=== PATIENT | female | born 1945 | race Caucasian/White ===

== ENCOUNTER 2019-06-28 09:32 | Outpatient (CLI) | payer MEDICARE, OTHER, SELFPAY ==
--- NOTE | ~2019-06-28 | DEXA_ITS ---
Bone Density Report Name: Annika Griffith Age: 74 Sex: Female Ethnicity: White Date of : 1945 Indication: postmenopausal; height loss; prior fracture; cancer; Referring Provider: Rashi Mata Study: Bone densitometry was performed. Exam Date: June 28, 2019 Accession number: [id number] Bone Density: Region BMD T-score Z-score Classification AP Spine (L1, L2, L3) 0.926 -0.8 1.3 Normal Femoral Neck (Left) 0.961 1.0 2.9 Normal Total Hip (Left) 1.113 1.4 3.0 Normal Total Hip Bilateral Avg 1.090 1.2 2.8 Normal Femoral Neck (Right) 0.888 0.4 2.3 Normal Total Hip (Right) 1.066 1.0 2.6 Normal World Health Organization criteria for BMD impression classify patients as: Normal (T-score at or above -1.0), Osteopenia (T-score between -1.0 and -2.5), or Osteoporosis (T-score at or below -2.5). 10-year Fracture Risk: FRAX not reported because: All T-scores for Spine Total, Hip Total, Femoral Neck at or above -1.0 Treated for osteoporosis Clinical Information Provided by Patient: Has had a low trauma fracture Is being treated for osteoporosis Has used the following medications: Fosamax (i.e. alendronate), Vitamin D, Calcium Has the following medical conditions: Cancer Patient maximum height was 62 Menopause Age: 52 No regular weight bearing exercise Onset of menses at age 16 Number of children 3 Impression: The patient has normal bone mass. The patient has risk factors, including: previous fracture. Discussion: It is important to ask patients whether they are taking their medications and to encourage continued and appropriate compliance with their osteoporosis therapies to reduce fracture risk. It is also important to review their risk factors and encourage appropriate calcium and vitamin D intakes, exercise, fall prevention and other lifestyle measures. Follow-Up: Consider a repeat BMD and Vertebral Fracture Assessment (VFA) exam in 2 years or sooner if medically necessary, to reassess this patient's status. Reported by: [facility] on 06/28/2019 10:03:00 AM. Reviewed, dictated and finalized at location [facility]
== END 2019-06-28 09:33 | disposition home or self-care (01) ==
LOC: ANHIMG 09:35
PROVIDERS: PCP Family Medicine; Visit Provider Internal Medicine Hematology & Oncology
DX: M81.0 Age-related osteoporosis without current pathological fracture (principal)
CPT/HCPCS: 77080

== ENCOUNTER 2019-09-28 11:59 | Outpatient (CLI) | payer MEDICARE, OTHER, SELFPAY ==
[2019-09-28 12:13] LABS: Basophils Percent Auto 0.4 % (0.2-1.2); Eosinophils Absolute Auto 0.3 K/mm3 (0-0.3); Hematocrit 36.2 % (37.0-47.0); Immature Granulocyte Absolute 0.02 K/mm3 (0.00-0.031); Immature Granulocyte Percent A 0.4 % (0-0.5); Lymphocytes Absolute Auto 1.43 K/mm3 (0.9-3.2); Mean Corpuscular HGB Conc 33.1 g/dl (32-36); Mean Corpuscular Hemoglobin 31.9 pg (26-34); Mean Corpuscular Volume 96.3 fl (80-100); Mean Platelet Volume 8.6 fl (7.4-10.4); Monocytes Absolute Auto 0.6 K/mm3 (0.1-0.6); Monocytes Percent Auto 10.4 % (2.6-8.5); Neutrophils Absolute Auto 3.1 K/mm3 (1.3-6.7); Neutrophils Percent Auto 56.8 % (45.5-73.1); Platelet Count Result 159 k/mm3 (150-375); Red Blood Count 3.76 M/mm3 (4.2-5.4); Red Cell Distribution Width 13.3 % (11.5-14.5); White Blood Count 5.5 K/mm3 (4.5-10.0)
[2019-09-28 12:16] LABS: Blood Urea Nitrogen 28 mg/dL (8-26); Carbon Dioxide 27 mmol/L (22-30); Chloride 104 mmol/L (98-109); Estimated Glomerular Filt Rate > 60; Glucose 132 mg/dL (70-105); Potassium 4.3 mmol/L (3.5-4.9); Sodium 141 mmol/L (138-146)
[2019-09-28 16:39] LABS: Alanine Aminotransferase 20 U/L (4-35); Albumin Level 4.4 g/dL (3.5-5.1); Alkaline Phosphatase 68 U/L (38-126); Aspartate Amino Transferase 27 U/L (14-36); Bilirubin,Total 0.3 mg/dL (0.2-1.3); Blood Urea Nitrogen 30 mg/dL (7-17); Calcium 9.5 mg/dL (8.4-10.2); Carbon Dioxide 28 mmol/L (22-30); Chloride 104 mmol/L (98-107); Estimated Glomerular Filt Rate > 60; Glucose 135 mg/dL (65-105); Potassium 4.5 mmol/L (3.4-5.0); Sodium 139 mmol/L (137-145)
== END 2019-09-28 12:00 | disposition home or self-care (01) ==
PROVIDERS: PCP Family Medicine; Visit Provider Internal Medicine Hematology & Oncology
DX: D05.11 Intraductal carcinoma in situ of right breast (principal)
CPT/HCPCS: 36415; 80048; 80053; 85025

== ENCOUNTER 2019-12-28 10:35 | Outpatient (CLI) | payer MEDICARE, OTHER, SELFPAY ==
[2019-12-28 10:48] LABS: Basophils Percent Auto 0.6 % (0.2-1.2); Eosinophils Absolute Auto 0.3 K/mm3 (0-0.3); Eosinophils Percent Auto 5.4 % (0-4.4); Hematocrit 37.4 % (37.0-47.0); Hemoglobin 12.4 g/dL (12.0-15.0); Immature Granulocyte Absolute 0.01 K/mm3 (0.00-0.031); Immature Granulocyte Percent A 0.2 % (0-0.5); Lymphocytes Absolute Auto 1.45 K/mm3 (0.9-3.2); Mean Corpuscular HGB Conc 33.2 g/dl (32-36); Mean Corpuscular Hemoglobin 32.1 pg (26-34); Mean Corpuscular Volume 96.9 fl (80-100); Mean Platelet Volume 8.3 fl (7.4-10.4); Monocytes Absolute Auto 0.5 K/mm3 (0.1-0.6); Monocytes Percent Auto 8.9 % (2.6-8.5); Neutrophils Absolute Auto 2.9 K/mm3 (1.3-6.7); Neutrophils Percent Auto 56.9 % (45.5-73.1); Platelet Count Result 150 k/mm3 (150-375); Red Blood Count 3.86 M/mm3 (4.2-5.4); White Blood Count 5.2 K/mm3 (4.5-10.0)
[2019-12-28 10:53] LABS: Blood Urea Nitrogen 28 mg/dL (8-26); Carbon Dioxide 29 mmol/L (22-30); Chloride 99 mmol/L (98-109); Estimated Glomerular Filt Rate > 60; Glucose 110 mg/dL (70-105); Potassium 4.8 mmol/L (3.5-4.9); Sodium 139 mmol/L (138-146)
[2019-12-28 12:11] LABS: Alanine Aminotransferase 31 U/L (4-35); Albumin Level 4.5 g/dL (3.5-5.1); Alkaline Phosphatase 76 U/L (38-126); Anion Gap 9 mmol/L (8-16); Aspartate Amino Transferase 33 U/L (14-36); Bilirubin,Total 0.4 mg/dL (0.2-1.3); Blood Urea Nitrogen 29 mg/dL (7-17); Calcium 9.8 mg/dL (8.4-10.2); Carbon Dioxide 32 mmol/L (22-30); Chloride 98 mmol/L (98-107); Estimated Glomerular Filt Rate > 60; Glucose 111 mg/dL (65-105); Potassium 4.8 mmol/L (3.4-5.0); Sodium 139 mmol/L (137-145)
== END 2019-12-28 10:36 | disposition home or self-care (01) ==
LOC: ANHLAB 10:37
PROVIDERS: PCP Family Medicine; Visit Provider Internal Medicine Hematology & Oncology
DX: D05.11 Intraductal carcinoma in situ of right breast (principal)
CPT/HCPCS: 36415; 80048; 80053; 85025

== ENCOUNTER 2020-08-08 10:13 | Outpatient (CLI) | payer MEDICARE, OTHER, SELFPAY ==
[2020-08-08 10:39] LABS: Basophils Percent Auto 0.2 % (0.2-1.2); Eosinophils Absolute Auto 0.2 K/mm3 (0-0.3); Eosinophils Percent Auto 3.9 % (0-4.4); Hematocrit 37.3 % (37.0-47.0); Hemoglobin 12.5 g/dL (12.0-15.0); Immature Granulocyte Absolute 0.01 K/mm3 (0.00-0.031); Immature Granulocyte Percent A 0.2 % (0-0.5); Lymphocytes Absolute Auto 1.37 K/mm3 (0.9-3.2); Lymphocytes Percent Auto 26.8 % (18.3-44.2); Mean Corpuscular HGB Conc 33.5 g/dl (32-36); Mean Corpuscular Hemoglobin 31.9 pg (26-34); Mean Corpuscular Volume 95.2 fl (80-100); Mean Platelet Volume 8.5 fl (7.4-10.4); Monocytes Absolute Auto 0.6 K/mm3 (0.1-0.6); Monocytes Percent Auto 11.9 % (2.6-8.5); Neutrophils Absolute Auto 2.9 K/mm3 (1.3-6.7); Platelet Count Result 151 k/mm3 (150-375); Red Blood Count 3.92 M/mm3 (4.2-5.4); Red Cell Distribution Width 13.2 % (11.5-14.5); White Blood Count 5.1 K/mm3 (4.5-10.0)
[2020-08-08 10:43] LABS: Blood Urea Nitrogen 38 mg/dL (8-26); Carbon Dioxide 31 mmol/L (22-30); Chloride 100 mmol/L (98-109); Estimated Glomerular Filt Rate > 60; Glucose 97 mg/dL (70-105); Potassium 4.5 mmol/L (3.5-4.9); Sodium 138 mmol/L (138-146)
[2020-08-08 13:13] LABS: Alanine Aminotransferase 28 U/L (4-35); Albumin Level 4.6 g/dL (3.5-5.1); Alkaline Phosphatase 66 U/L (38-126); Anion Gap 6 mmol/L (8-16); Aspartate Amino Transferase 32 U/L (14-36); Bilirubin,Total 0.2 mg/dL (0.2-1.3); Blood Urea Nitrogen 41 mg/dL (7-17); Carbon Dioxide 31 mmol/L (22-30); Chloride 100 mmol/L (98-107); Estimated Glomerular Filt Rate > 60; Glucose 95 mg/dL (65-105); Potassium 4.6 mmol/L (3.4-5.0); Sodium 137 mmol/L (137-145)
[2020-08-12 08:57] LABS: CA 15-3 5 U/mL (<32)
== END 2020-08-08 10:14 | disposition home or self-care (01) ==
LOC: ANHLAB 10:15
PROVIDERS: PCP Family Medicine; Visit Provider Internal Medicine Hematology & Oncology
DX: C50.911 Malignant neoplasm of unspecified site of right female breast (principal)
CPT/HCPCS: 36415; 80048; 80053; 85025; 86300

== ENCOUNTER 2020-11-28 10:13 | Outpatient (CLI) | payer MEDICARE, OTHER, SELFPAY ==
[2020-11-28 10:31] LABS: Basophils Percent Auto 0.2 % (0.2-1.2); Eosinophils Absolute Auto 0.2 K/mm3 (0-0.3); Eosinophils Percent Auto 4.5 % (0-4.4); Hematocrit 36.6 % (37.0-47.0); Hemoglobin 12.5 g/dL (12.0-15.0); Immature Granulocyte Absolute 0.01 K/mm3 (0.00-0.031); Immature Granulocyte Percent A 0.2 % (0-0.5); Lymphocytes Absolute Auto 1.38 K/mm3 (0.9-3.2); Lymphocytes Percent Auto 26.1 % (18.3-44.2); Mean Corpuscular HGB Conc 34.2 g/dl (32-36); Mean Corpuscular Hemoglobin 31.6 pg (26-34); Mean Corpuscular Volume 92.7 fl (80-100); Mean Platelet Volume 8.6 fl (7.4-10.4); Monocytes Absolute Auto 0.6 K/mm3 (0.1-0.6); Monocytes Percent Auto 11.9 % (2.6-8.5); Neutrophils Percent Auto 57.1 % (45.5-73.1); Platelet Count Result 182 k/mm3 (150-375); Red Blood Count 3.95 M/mm3 (4.2-5.4); Red Cell Distribution Width 12.8 % (11.5-14.5); White Blood Count 5.3 K/mm3 (4.5-10.0)
[2020-11-28 10:35] LABS: Blood Urea Nitrogen 40 mg/dL (8-26); Carbon Dioxide 27 mmol/L (22-30); Chloride 101 mmol/L (98-109); Estimated Glomerular Filt Rate > 60; Glucose 100 mg/dL (70-105); Potassium 4.5 mmol/L (3.5-4.9); Sodium 140 mmol/L (138-146)
[2020-11-28 18:39] LABS: Alanine Aminotransferase 26 U/L (4-35); Albumin Level 4.4 g/dL (3.5-5.1); Alkaline Phosphatase 73 U/L (38-126); Anion Gap 9 mmol/L (8-16); Aspartate Amino Transferase 27 U/L (14-36); Bilirubin,Total 0.2 mg/dL (0.2-1.3); Blood Urea Nitrogen 43 mg/dL (7-17); Calcium 10.1 mg/dL (8.4-10.2); Carbon Dioxide 27 mmol/L (22-30); Chloride 102 mmol/L (98-107); Estimated Glomerular Filt Rate > 60; Glucose 101 mg/dL (65-110); Potassium 4.6 mmol/L (3.4-5.0); Sodium 138 mmol/L (137-145)
[2020-12-01 06:49] LABS: CA 15-3 7 U/mL (<32)
== END 2020-11-28 10:14 | disposition home or self-care (01) ==
LOC: ANHLAB 10:17
PROVIDERS: PCP Family Medicine; Visit Provider Internal Medicine Hematology & Oncology
DX: C50.911 Malignant neoplasm of unspecified site of right female breast (principal)
CPT/HCPCS: 36415; 80048; 80053; 85025; 86300

== ENCOUNTER 2021-05-21 08:53 | Outpatient (CLI) | payer MEDICARE, SELFPAY ==
[2021-05-21 09:21] LABS: Basophils Percent Auto 0.5 % (0.2-1.2); Eosinophils Absolute Auto 0.3 K/mm3 (0-0.3); Eosinophils Percent Auto 6.5 % (0-4.4); Hematocrit 36.3 % (37.0-47.0); Hemoglobin 11.6 g/dL (12.0-15.0); Immature Granulocyte Absolute 0.01 K/mm3 (0.00-0.031); Immature Granulocyte Percent A 0.2 % (0-0.5); Lymphocytes Absolute Auto 1.12 K/mm3 (0.9-3.2); Lymphocytes Percent Auto 25.8 % (18.3-44.2); Mean Corpuscular Hemoglobin 31.6 pg (26-34); Mean Corpuscular Volume 98.9 fl (80-100); Mean Platelet Volume 8.5 fl (7.4-10.4); Monocytes Absolute Auto 0.5 K/mm3 (0.1-0.6); Monocytes Percent Auto 11.3 % (2.6-8.5); Neutrophils Absolute Auto 2.4 K/mm3 (1.3-6.7); Neutrophils Percent Auto 55.7 % (45.5-73.1); Platelet Count Result 126 k/mm3 (150-375); Red Blood Count 3.67 M/mm3 (4.2-5.4); Red Cell Distribution Width 12.7 % (11.5-14.5); White Blood Count 4.3 K/mm3 (4.5-10.0)
[2021-05-21 10:22] LABS: Alanine Aminotransferase 22 U/L (4-35); Albumin Level 4.3 g/dL (3.5-5.1); Alkaline Phosphatase 74 U/L (38-126); Anion Gap 7 mmol/L (8-16); Aspartate Amino Transferase 32 U/L (14-36); Bilirubin,Total 0.3 mg/dL (0.2-1.3); Blood Urea Nitrogen 39 mg/dL (7-17); Carbon Dioxide 30 mmol/L (22-30); Chloride 103 mmol/L (98-107); Estimated Glomerular Filt Rate > 60; Glucose 103 mg/dL (65-110); Potassium 4.2 mmol/L (3.4-5.0); Sodium 140 mmol/L (137-145)
[2021-05-24 03:57] LABS: CA 15-3 5 U/mL (<32)
== END 2021-05-21 08:54 | disposition home or self-care (01) ==
PROVIDERS: PCP Family Medicine; Visit Provider Internal Medicine Hematology & Oncology
DX: C50.911 Malignant neoplasm of unspecified site of right female breast (principal)
CPT/HCPCS: 36415; 80053; 85025; 86300

== ENCOUNTER 2021-12-03 10:03 | Outpatient (CLI) | payer MEDICARE, SELFPAY ==
[2021-12-03 10:17] LABS: Basophils Percent Auto 0.2 % (0.2-1.2); Eosinophils Absolute Auto 0.3 K/mm3 (0-0.3); Hematocrit 36.2 % (37.0-47.0); Immature Granulocyte Absolute 0.02 K/mm3 (0.00-0.031); Immature Granulocyte Percent A 0.3 % (0-0.5); Lymphocytes Absolute Auto 1.31 K/mm3 (0.9-3.2); Lymphocytes Percent Auto 21.1 % (18.3-44.2); Mean Corpuscular HGB Conc 33.1 g/dl (32-36); Mean Corpuscular Hemoglobin 32.6 pg (26-34); Mean Corpuscular Volume 98.4 fl (80-100); Mean Platelet Volume 8.6 fl (7.4-10.4); Monocytes Absolute Auto 0.5 K/mm3 (0.1-0.6); Monocytes Percent Auto 8.4 % (2.6-8.5); Neutrophils Absolute Auto 4.1 K/mm3 (1.3-6.7); Platelet Count Result 155 k/mm3 (150-375); Red Blood Count 3.68 M/mm3 (4.2-5.4); Red Cell Distribution Width 13.5 % (11.5-14.5); White Blood Count 6.2 K/mm3 (4.5-10.0)
[2021-12-03 10:21] LABS: Blood Urea Nitrogen 36 mg/dL (8-26); Carbon Dioxide 30 mmol/L (22-30); Chloride 104 mmol/L (98-109); Estimated Glomerular Filt Rate > 60; Glucose 143 mg/dL (70-105); Ionized Calcium (POC) 1.15 mmol/L (1.11-1.31); Potassium 4.7 mmol/L (3.5-4.9); Sodium 143 mmol/L (138-146)
[2021-12-03 15:47] LABS: Alanine Aminotransferase 27 U/L (6-35); Albumin Level 4.5 g/dL (3.5-5.1); Alkaline Phosphatase 82 U/L (38-126); Anion Gap 10 mmol/L (8-16); Aspartate Amino Transferase 30 U/L (14-36); Bilirubin,Total 0.2 mg/dL (0.2-1.3); Blood Urea Nitrogen 39 mg/dL (7-17); Calcium 9.1 mg/dL (8.4-10.2); Carbon Dioxide 29 mmol/L (22-30); Chloride 104 mmol/L (98-107); Estimated Glomerular Filt Rate > 60; Glucose 147 mg/dL (65-110); Sodium 143 mmol/L (137-145)
== END 2021-12-03 10:04 | disposition home or self-care (01) ==
LOC: ANHLAB 10:04
PROVIDERS: PCP Family Medicine; Visit Provider Internal Medicine Hematology & Oncology
DX: C50.911 Malignant neoplasm of unspecified site of right female breast (principal)
CPT/HCPCS: 36415; 80047; 80053; 85025

== ENCOUNTER 2022-06-06 10:37 | Outpatient (CLI) | payer MEDICARE, SELFPAY ==
[2022-06-06 10:51] LABS: Basophils Percent Auto 0.4 % (0.2-1.2); Eosinophils Absolute Auto 0.2 K/mm3 (0-0.3); Eosinophils Percent Auto 3.6 % (0-4.4); Hematocrit 36.4 % (37.0-47.0); Hemoglobin 12.1 g/dL (12.0-15.0); Immature Granulocyte Absolute 0.01 K/mm3 (0.00-0.031); Immature Granulocyte Percent A 0.2 % (0-0.5); Lymphocytes Absolute Auto 1.35 K/mm3 (0.9-3.2); Lymphocytes Percent Auto 25.5 % (18.3-44.2); Mean Corpuscular HGB Conc 33.2 g/dl (32-36); Mean Corpuscular Hemoglobin 31.7 pg (26-34); Mean Corpuscular Volume 95.3 fl (80-100); Mean Platelet Volume 8.6 fl (7.4-10.4); Monocytes Absolute Auto 0.6 K/mm3 (0.1-0.6); Monocytes Percent Auto 11.2 % (2.6-8.5); Neutrophils Absolute Auto 3.1 K/mm3 (1.3-6.7); Neutrophils Percent Auto 59.1 % (45.5-73.1); Platelet Count Result 175 k/mm3 (150-375); Red Blood Count 3.82 M/mm3 (4.2-5.4); Red Cell Distribution Width 13.2 % (11.5-14.5); White Blood Count 5.3 K/mm3 (4.5-10.0)
[2022-06-06 10:57] LABS: Blood Urea Nitrogen 41 mg/dL (8-26); Carbon Dioxide 30 mmol/L (22-30); Chloride 102 mmol/L (98-109); Estimated Glomerular Filt Rate > 60; Glucose 142 mg/dL (70-105); Ionized Calcium (POC) 1.27 mmol/L (1.11-1.31); Potassium 4.6 mmol/L (3.5-4.9); Sodium 141 mmol/L (138-146)
[2022-06-06 12:23] LABS: Alanine Aminotransferase 20 U/L (6-35); Albumin Level 4.3 g/dL (3.5-5.1); Alkaline Phosphatase 75 U/L (38-126); Anion Gap 6 mmol/L (8-16); Aspartate Amino Transferase 21 U/L (14-36); Bilirubin,Total 0.4 mg/dL (0.2-1.3); Blood Urea Nitrogen 43 mg/dL (7-17); Calcium 9.5 mg/dL (8.4-10.2); Carbon Dioxide 30 mmol/L (22-30); Chloride 104 mmol/L (98-107); Estimated Glomerular Filt Rate > 60; Glucose 136 mg/dL (65-110); Potassium 4.7 mmol/L (3.4-5.0); Sodium 140 mmol/L (137-145)
== END 2022-06-06 10:38 | disposition home or self-care (01) ==
LOC: ANHLAB 10:39
PROVIDERS: PCP Family Medicine; Visit Provider Internal Medicine Hematology & Oncology
DX: C50.911 Malignant neoplasm of unspecified site of right female breast (principal)
CPT/HCPCS: 36415; 80047; 80053; 85025

== ENCOUNTER 2022-12-12 10:53 | Outpatient (CLI) | payer MEDICARE, SELFPAY ==
[2022-12-12 11:04] LABS: Basophils Percent Auto 0.4 % (0.2-1.2); Eosinophils Absolute Auto 0.3 K/mm3 (0-0.3); Eosinophils Percent Auto 6.5 % (0-4.4); Hematocrit 38.9 % (37.0-47.0); Hemoglobin 12.7 g/dL (12.0-15.0); Immature Granulocyte Absolute 0.01 K/mm3 (0.00-0.031); Immature Granulocyte Percent A 0.2 % (0-0.5); Lymphocytes Absolute Auto 1.34 K/mm3 (0.9-3.2); Lymphocytes Percent Auto 27.4 % (18.3-44.2); Mean Corpuscular HGB Conc 32.6 g/dl (32-36); Mean Corpuscular Hemoglobin 31.9 pg (26-34); Mean Corpuscular Volume 97.7 fl (80-100); Mean Platelet Volume 8.9 fl (7.4-10.4); Monocytes Absolute Auto 0.5 K/mm3 (0.1-0.6); Neutrophils Absolute Auto 2.7 K/mm3 (1.3-6.7); Neutrophils Percent Auto 54.5 % (45.5-73.1); Platelet Count Result 174 k/mm3 (150-375); Red Blood Count 3.98 M/mm3 (4.2-5.4); Red Cell Distribution Width 12.9 % (11.5-14.5); White Blood Count 4.9 K/mm3 (4.5-10.0)
[2022-12-12 11:10] LABS: Blood Urea Nitrogen 37 mg/dL (8-26); Carbon Dioxide 30 mmol/L (22-30); Chloride 103 mmol/L (98-109); Estimated Glomerular Filt Rate > 60; Glucose 124 mg/dL (70-105); Ionized Calcium (POC) 1.21 mmol/L (1.11-1.31); Potassium 4.6 mmol/L (3.5-4.9); Sodium 140 mmol/L (138-146)
[2022-12-12 12:10] LABS: Alanine Aminotransferase 26 U/L (6-35); Albumin Level 4.6 g/dL (3.5-5.1); Alkaline Phosphatase 73 U/L (38-126); Anion Gap 6 mmol/L (8-16); Aspartate Amino Transferase 34 U/L (14-36); Bilirubin,Total 0.5 mg/dL (0.2-1.3); Blood Urea Nitrogen 40 mg/dL (7-17); Calcium 9.8 mg/dL (8.4-10.2); Carbon Dioxide 32 mmol/L (22-30); Chloride 102 mmol/L (98-107); Estimated Glomerular Filt Rate > 60; Glucose 120 mg/dL (65-110); Potassium 4.5 mmol/L (3.4-5.0); Sodium 140 mmol/L (137-145)
== END 2022-12-12 10:54 | disposition home or self-care (01) ==
LOC: ANHLAB 10:55
PROVIDERS: PCP Family Medicine; Visit Provider Internal Medicine Hematology & Oncology
DX: C50.911 Malignant neoplasm of unspecified site of right female breast (principal)
CPT/HCPCS: 36415; 80047; 80053; 85025

== ENCOUNTER 2023-05-20 10:44 | Emergency (ER) | payer MEDICARE, SELFPAY ==
[2023-05-20 10:56] VITALS: BP 132/59; PULSE 70; RESP 20; TEMP 36.7; O2SAT 98
--- NOTE | 2023-05-20 11:33 | ED.GENADULT ---
HPI - General Adult General Chief complaint: Upper Respiratory Infection Stated complaint: exposed to covid Source: patient Mode of arrival: ambulatory Limitations: no limitations History of Present Illness HPI narrative: Patient presents for evaluation of sick symptoms for last 3 days. 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 That individual tested positive for COVID two days ago. Patient reports sinus congestion, irritation to hard palate of her mouth and a productive cough green sputum. She denies fever, chills, nausea, vomiting, diarrhea, shortness of breath. Her is here being evaluated also. She is not taking any medications kwil-prx-msuxumz to assist with her symptoms. Related Data Home Medications Medication Instructions Recorded Confirmed alendronate 10 mg tablet 10 mg PO WEEKLY 02/04/19 05/26/20 allopurinol 100 mg tablet 100 mg PO DAILY 02/04/19 05/26/20 aspirin 81 mg tablet,delayed 81 mg PO DAILY 02/04/19 05/26/20 release (Aspir-) mreh-lri-werbl-grrbrkxcu-wbccquzr-axes-pectin 2,000 tablet PO DAILY 02/04/19 05/26/20 1,000 mg tablet (Fiber 6) calcium carbonate 600 mg-vitamin 1 tablet PO DAILY 02/04/19 05/26/20 D3 5 mcg (200 unit) tablet (Calcium 600 + D(3)) cholecalciferol (vitamin D3) 50 2,000 unit PO DAILY 02/04/19 05/26/20 mcg (2,000 unit) tablet (Vitamin D3) enalapril maleate 10 mg tablet 10 mg PO DAILY 02/04/19 05/26/20 furosemide 40 mg tablet 40 mg PO BID 02/04/19 05/26/20 levothyroxine 125 mcg tablet 125 mcg PO DAILY 02/04/19 05/26/20 meloxicam 7.5 mg tablet 7.5 mg PO DAILY 02/04/19 05/26/20 multivitamin 1 tablet PO DAILY 02/04/19 05/26/20 pantoprazole 40 mg tablet,delayed 40 mg PO QAM 02/04/19 05/26/20 release potassium chloride 10 mEq 10 meq PO DAILY 02/04/19 05/26/20 tablet,extended release (Klor-Con) sertraline 50 mg tablet 50 mg PO DAILY 02/04/19 05/26/20 simvastatin 80 mg tablet 80 mg PO DAILY 02/04/19 05/26/20 anastrozole 1 mg tablet 1 mg PO DAILY 11/26/19 05/26/20 venlafaxine 75 mg capsule,extended 75 mg PO DAILY 11/26/19 05/26/20 release 24 hr (Effexor XR) Allergies Allergy/AdvReac Type Severity Reaction Status Date / Time benazepril [From Lotensin] Allergy Unknown Verified 05/20/23 11:00 niacin Allergy Hives Verified 05/20/23 11:00 Review of Systems Review of Systems: CONSTITUTIONAL: Denies fever, chills, or sweats. EYES: Denies visual changes, redness, or discharge. ENT: Reports sinus congestion and irritation to hard palate of her mouth. Denies rhinorrhea sore throat, or otalgia. CARDIOVASCULAR: Denies chest pain, palpitations, or edema. RESPIRATORY: Reports productive cough of green sputum. Denies SOB GASTROINTESTINAL: Denies abdominal pain, nausea, vomiting, or diarrhea. GENITOURINARY: Denies dysuria or hematuria. SKIN: Denies rash or itching. MUSCULOSKELETAL: Denies back pain, joint pain, or myalgia. NEUROLOGIC: Denies headache, numbness, dizziness, or weakness. PSYCHIATRIC: Denies anxiety or depression. [facility] Past Medical History Medical History (Updated 05/20/23 @ 11:36 by Jeramie Cho, VEGA, ) Anxiety Arthritis Depression HTN (hypertension) Hyperlipemia Hypothyroid Obesity Osteopenia Sleep apnea Spinal stenosis Vitamin D deficiency Surgical History Surgical History No pertinent past surgical history Family History Family History Other No family history of cancer Social History Social History Smoking status: Never smoker Alcohol intake: never Substance use: never Living arrangements: with family Gender identity (if verbalized by the patient): Female Sexual Orientation (if Verbalized by the Patient): Straight or Heterosexual Spiritual care concerns: No Exam Narrative: GEN
== END 2023-05-20 11:40 | disposition home or self-care (01) ==
PROVIDERS: Emergency Provider Nurse Practitioner
DX: U07.1 COVID-19 (principal); M19.90 Unspecified osteoarthritis, unspecified site; I10 Essential (primary) hypertension; E78.5 Hyperlipidemia, unspecified; E03.9 Hypothyroidism, unspecified; E66.9 Obesity, unspecified; Z68.42 Body mass index [BMI] 45.0-49.9, adult; M85.80 Other specified disorders of bone density and structure, unspecified site; F41.9 Anxiety disorder, unspecified; E55.9 Vitamin D deficiency, unspecified
CPT/HCPCS: 87426; 87804; 99213; G0463

== ENCOUNTER 2023-06-19 08:54 | Outpatient (CLI) | payer MEDICARE, SELFPAY ==
[2023-06-19 09:25] LABS: Basophils Percent Auto 0.4 % (0.2-1.2); Eosinophils Absolute Auto 0.3 K/mm3 (0-0.3); Eosinophils Percent Auto 5.8 % (0-4.4); Hematocrit 36.8 % (37.0-47.0); Hemoglobin 12.3 g/dL (12.0-15.0); Immature Granulocyte Absolute 0.01 K/mm3 (0.00-0.031); Immature Granulocyte Percent A 0.2 % (0-0.5); Lymphocytes Absolute Auto 1.24 K/mm3 (0.9-3.2); Lymphocytes Percent Auto 23.3 % (18.3-44.2); Mean Corpuscular HGB Conc 33.4 g/dl (32-36); Mean Corpuscular Hemoglobin 32.2 pg (26-34); Mean Corpuscular Volume 96.3 fl (80-100); Monocytes Absolute Auto 0.5 K/mm3 (0.1-0.6); Monocytes Percent Auto 9.6 % (2.6-8.5); Neutrophils Absolute Auto 3.2 K/mm3 (1.3-6.7); Neutrophils Percent Auto 60.7 % (45.5-73.1); Platelet Count Result 147 k/mm3 (150-375); Red Blood Count 3.82 M/mm3 (4.2-5.4); Red Cell Distribution Width 13.2 % (11.5-14.5); White Blood Count 5.3 K/mm3 (4.5-10.0)
[2023-06-19 10:08] LABS: Alanine Aminotransferase 25 U/L (6-35); Albumin Level 4.3 g/dL (3.5-5.1); Alkaline Phosphatase 70 U/L (38-126); Anion Gap 3 mmol/L (4-12); Aspartate Amino Transferase 27 U/L (14-36); Bilirubin,Total 0.5 mg/dL (0.2-1.3); Blood Urea Nitrogen 33 mg/dL (7-17); Calcium 9.3 mg/dL (8.4-10.2); Carbon Dioxide 31 mmol/L (22-30); Chloride 103 mmol/L (98-107); Estimated Glomerular Filt Rate > 60; Glucose 116 mg/dL (65-110); Potassium 4.5 mmol/L (3.4-5.0); Sodium 137 mmol/L (137-145)
[2023-06-22 14:36] LABS: CA 15-3 8 U/mL (<32)
== END 2023-06-19 08:55 | disposition home or self-care (01) ==
LOC: ANHLAB 08:56
PROVIDERS: Visit Provider Internal Medicine Hematology & Oncology
DX: C50.911 Malignant neoplasm of unspecified site of right female breast (principal)
CPT/HCPCS: 36415; 80053; 85025; 86300

== ENCOUNTER 2024-01-02 09:28 | Outpatient (CLI) | payer MEDICARE, SELFPAY ==
[2024-01-02 09:41] LABS: Basophils Percent Auto 0.4 % (0.2-1.2); Eosinophils Absolute Auto 0.3 K/mm3 (0-0.3); Eosinophils Percent Auto 5.6 % (0-4.4); Hematocrit 37.6 % (37.0-47.0); Hemoglobin 12.5 g/dL (12.0-15.0); Immature Granulocyte Absolute 0.02 K/mm3 (0.00-0.031); Immature Granulocyte Percent A 0.4 % (0-0.5); Lymphocytes Absolute Auto 1.28 K/mm3 (0.9-3.2); Lymphocytes Percent Auto 26.5 % (18.3-44.2); Mean Corpuscular HGB Conc 33.2 g/dl (32-36); Mean Corpuscular Hemoglobin 32.8 pg (26-34); Mean Corpuscular Volume 98.7 fl (80-100); Mean Platelet Volume 8.7 fl (7.4-10.4); Monocytes Absolute Auto 0.4 K/mm3 (0.1-0.6); Monocytes Percent Auto 8.5 % (2.6-8.5); Neutrophils Absolute Auto 2.8 K/mm3 (1.3-6.7); Neutrophils Percent Auto 58.6 % (45.5-73.1); Platelet Count Result 144 k/mm3 (150-375); Red Blood Count 3.81 M/mm3 (4.2-5.4); Red Cell Distribution Width 12.9 % (11.5-14.5); White Blood Count 4.8 K/mm3 (4.5-10.0)
[2024-01-02 09:44] LABS: Blood Urea Nitrogen 34 mg/dL (8-26); Carbon Dioxide 29 mmol/L (22-30); Chloride 102 mmol/L (98-109); Estimated Glomerular Filt Rate 48; Glucose 131 mg/dL (70-105); Ionized Calcium (POC) 1.23 mmol/L (1.11-1.31); Potassium 4.3 mmol/L (3.5-4.9); Sodium 139 mmol/L (138-146)
[2024-01-02 10:29] LABS: Alanine Aminotransferase 20 U/L (6-35); Albumin Level 4.6 g/dL (3.5-5.1); Alkaline Phosphatase 68 U/L (38-126); Anion Gap 8 mmol/L (4-12); Aspartate Amino Transferase 26 U/L (14-36); Bilirubin,Total 0.4 mg/dL (0.2-1.3); Blood Urea Nitrogen 37 mg/dL (7-17); Calcium 9.7 mg/dL (8.4-10.2); Carbon Dioxide 29 mmol/L (22-30); Chloride 101 mmol/L (98-107); Estimated Glomerular Filt Rate > 60; Glucose 134 mg/dL (65-110); Potassium 4.3 mmol/L (3.4-5.0); Sodium 138 mmol/L (137-145)
== END 2024-01-02 09:29 | disposition home or self-care (01) ==
LOC: ANHLAB 09:30
PROVIDERS: Visit Provider Internal Medicine Hematology & Oncology
DX: D05.11 Intraductal carcinoma in situ of right breast (principal)
CPT/HCPCS: 36415; 80047; 80053; 85025

== ENCOUNTER 2024-07-30 08:29 | Outpatient (CLI) | payer MEDICARE, SELFPAY ==
--- NOTE | ~2024-07-30 | DEXA_ITS ---
Bone Density Report Name: RIN BROWN Age: 79 Sex: Female Ethnicity: White Date of : 1945 Indication: postmenopausal; screening for osteoporosis; cancer; secondary osteoporosis; Referring Provider: DIANE FUENTES Study: Bone densitometry was performed. Exam Date: July 30, 2024 Accession number: [id number] Bone Density: Region BMD T-score Z-score Classification AP Spine(L1-L4) 1.010 -0.3 2.2 Normal Femoral Neck (Left) 0.934 0.8 2.9 Normal Total Hip (Left) 1.092 1.2 3.1 Normal Femoral Neck (Right) 0.855 0.1 2.2 Normal Total Hip (Right) 1.031 0.7 2.6 Normal Total Hip Mean 1.062 1.0 2.9 Normal World Health Organization criteria for BMD impression classify patients as: Normal (T-score at or above -1.0), Osteopenia (T-score between -1.0 and -2.5), or Osteoporosis (T-score at or below -2.5). 10-year Fracture Risk: FRAX not reported because: All T-scores for Spine Total, Hip Total, Femoral Neck at or above -1.0 Previous Exams: Region Exam Age BMD T-score BMD Change BMD Change Date g/cm2 vs Baseline vs Previous Total Hip(Left) 07/30/2024 79 1.092 1.2 -0.021 (-1.9%) -0.021 (-1.9%) 06/28/2019 74 1.113 1.4 Total Hip(Right) 07/30/2024 79 1.031 0.7 -0.034 (-3.2%) -0.034 (-3.2%) 06/28/2019 74 1.066 1.0 *Denotes significance at 95% confidence level, LSC for Total Hip = 0.027 g/cm2 # Denotes dissimilar scan types or analysis methods Clinical Information Provided by Patient: Has secondary osteoporosis Has used the following medications: Fosamax (i.e. alendronate), Vitamin D, Calcium Has the following medical conditions: Cancer Patient maximum height was 62 Menopause Age: 52 No regular weight bearing exercise Drinks caffeinated beverages Onset of menses at age 16 Number of children 3 Impression: The patient has normal bone mass. No significant bone loss was observed. Discussion: LOW RISK OF FRACTURE; BONE DENSITY IS WELL ABOVE THE MINIMUM DESIRABLE LEVEL AND ABOVE AVERAGE FOR AGE AND SEX AT ALL SKELETAL SITES TESTED. This person's bone density is above expected limits for age and sex. This is rarely clinically significant, but should be pursued if there are significant musculoskeletal complaints. The patient should follow a healthful lifestyle (good nutrition with adequate calcium and vitamin D, and appropriate weight-bearing exercise). Follow-Up: Consider repeating this study in 5 years or sooner if there is some new clinical indication. Reported by: AURE on 07/30/2024 9:05:00 AM. Reviewed, dictated and finalized at location [facility]
--- OUTSIDE RECORDS SUMMARY | 2024-07-30 08:32 | XMS_ITS | Encounter Summary ---
Author Organization [facility] Address [address] [place] [address] Care Team Providers Care Business Analyst Consultant Name Role Phone Edel Gatica MD Primary Care Provider Encounter Details Date Type Department Care Team (Late Contact Info) Description 02/04/2019 Chart Note [facility] Radiation Therapy [address] [place] [address] Jose Muñ[place] [address] [place] [address] Social History Tobacco Use Types Packs/Day Years Used Date Smoking Tobacco: Never Smokeless Tobacco: Never Alcohol Use Standard Drinks/Week Comments Not Currently 0 (1 standard drink = 0.6 oz pur e alcohol) Comments No Sex and Gender Information Value Date Recorded Sex Assigned at Not on file Legal Sex Female 10:51 AM CDT Gender Identity Not on file Sexual Orientation Not on file documented as of this encounter Plan of Treatment Upcoming Encounters Date Type Department Care Team (Late st Contact Info) Description 08/06/2024 9:00 AM CDT Office Visit [facility] Oncology and Hematology - [place] [address] [facility] [address] [place] [address] Rashi Mata MD [address] [facility] [address] [place] [address] documented as of this encounter Visit Diagnoses Not on filedocumented in this encounter Care Teams Business Analyst Consultant Relationship Specialty Start Date End Date Edel Gatica MD [address] [place] [address] PCP - General Family Practice 01/26/19 documented as of this encounter
--- OUTSIDE RECORDS SUMMARY | 2024-07-30 08:33 | XMS_ITS | Clinical Summary ---
Author Organization [facility] Address [address] [place] [address] Phone Care Team Providers Care Manager Sound Name Role Phone Edel Gatica MD Primary Care Provider Allergies Active Allergy Reactions Criticality Noted Date Comments Benazepril Hives 07/10/2022 Medications sertraline (ZOLOFT) 50 MG Tablet Take 50 mg by mouth daily. Active meloxicam (MOBIC) 7.5 MG Tablet Take 7.5 mg by mouth daily. Active simvastatin (ZOCOR) 40 MG Tablet Take 40 mg by mouth every evening. Active levothyroxine (SYNTHROID) 125 MCG Tablet Take 125 mcg by mouth daily. Active aspirin EC 81 MG Tablet Delayed Response Take 81 mg by mouth daily. Active enalapril (VASOTEC) 5 MG Tablet Take by mouth daily. Active potassium chloride SA (K-DUR) 10 MEQ Tablet Controlled Release Take 10 mEq by mouth daily. Active Calcium Carbonate (CALCIUM 600 PO) Take 2 Tablets by mouth daily. Active furosemide (LASIX) 40 MG Tablet Take 40 mg by mouth daily. Active allopurinol (ZYLOPRIM) 100 MG Tablet Take 100 mg by mouth daily. Active Cholecalciferol (VITAMIN D3 PO) Take 2 Tablets by mouth daily. 4000units Active Inulin (FIBER CHOICE PO) Take 2 Tabs by mouth daily. Active Multiple Vitamin (MULTIVITAMINS PO) Take 1 Tab by mouth daily. Active acetaminophen (TYLENOL) 325 MG Tablet Take 1 Tab by mouth every 6 hours as needed for Pain or Fever (for temperature greater than 100.4 F). Do not exceed 4000 mg of acetaminophen in 24 hour from all sources. 6 Active Multiple Vitamins-Minera ls (ZINC PO) Take 50 mg by mouth daily. Active APPLE CIDER VINEGAR PO Take 450 mg by mouth daily. Active venlafaxine (EFFEXOR) 75 MG Tablet Take 75 mg by mouth daily. Active Multiple Vitamins-Minera ls (PRESERVISION AREDS 2 PO) Take by mouth daily. Generic Active anastrozole (ARIMIDEX) 1 MG Tablet Take 1 mg by mouth daily Active mirtazapine (REMERON HAMMAD-TAB) 30 MG TABLET DISPERSIBLE Take 30 mg by mouth daily. Active Cyanocobalamin (VITAMIN B12 PO) Take 1,000 mcg by mouth daily. Active Active Problems Problem Noted Date Diagnosed Date Lumbar spinal stenosis 10/05/2015 Family History Medical History Relation Name Comments No Known Problems Mother Relation Name Status Comments Father Mother Social History Tobacco Use Types Packs/Day Years Used Date Smoking Tobacco: Never Smokeless Tobacco: Never Tobacco Cessation:Counseling Given: Not Answered Alcohol Use Standard Drinks/Week Comments No 0 (1 standard drink = 0.6 oz pur e alcohol) Comments Unknown Sex and Gender Information Value Date Recorded Sex Assigned at Not on file Legal Sex Female 2:24 PM CDT Gender Identity Not on file Sexual Orientation Not on file Last Filed Vital Signs Vital Sign Reading Time Taken Comments Blood Pressure 143/74 09/16/2022 11:16 AM CDT Pulse 59 09/16/2022 11:16 AM CDT Temperature 36.5 C (97.7 F) 09/16/2022 11:16 AM CDT Respiratory Rate 16 09/16/2022 11:16 AM CDT Oxygen Saturation 92% 09/16/2022 11:16 AM CDT Inhaled Oxygen Concentration - - Weight 117 kg (258 lb) 09/10/2022 1:00 PM CDT Height 156.2 cm (5' 1.5 ) 09/10/2022 1:00 PM CDT Body Mass Index 47.96 09/10/2022 1:00 PM CDT Plan of Treatment Health Maintenance Due Date Last Done Comments Hepatitis C Virus (HCV) Screening 1945 Mammogram 05/25/1955 Pneumococcal Immunization (50+ years) (2 of 2 - PPSV23) 12/24/2016 12/25/2015 DEXA Bone Density 06/27/2021 06/28/2019 Respiratory Syncytial Virus (RSV) Immunization (Adult) (1 - 1-dose 75+ series) 05/25/2022 Influenza Immunization (#1) 11/23/202311/22, 12/11/2020, 12/11/2020, Additional history exists SARS-COV-2 Immunization ( season) 2023 12/03/2021, 02/22/2021, 06/20/2020, Additional history exists DTaP/Tdap/Td Immunization Discontinued 03/12/2018 TdaP Immunization Completed 03/12/2018 Zoster Immunization Completed 01/30/2022, Hepatitis B Immunization Aged Out No longer eligible based on patient's age to complete this topic Meningococcal Immunization (ACWY) Aged Out No longer eligible based on patient's age to complete this topic Rotavirus Immunization Aged Out No lo nger eligible based on patient's age to complete this topic Medical Devices Implanted Type Area Safety Patrol Officer Device Identifier Shelf Expiration Date Model / Serial / Lot Technis 1-Piece Iol With Simplicity Delivery System Implanted:Qty: 1 on 07/15/2022 by Sean Hdz MD at [facility] Right: Eye [employer] 03/05/2024 [id number] / [id number] / [id number] Left Intraocular Lens Implanted:Qty: 1 on 09/16/2022 by Sean Hdz MD at [facility] Left: Eye [employer] 06/09/2025 [id number] / [id number] / [id number] Insurance MEDICARE C [employer] [place] [id number] Care Teams Manager Sound Relationship Specialty Start Date End Date Edel Gatica MD [address] [place] [address] PCP - General Family Medicine 07/12/22
--- OUTSIDE RECORDS SUMMARY | 2024-07-30 08:33 | XMS_ITS | Clinical Summary ---
Author Organization [facility] Address [address] [place] [address] Care Team Providers Care Welding Manager Name Role Phone Edel Gatica MD Primary Care Provider Allergies Active Allergy Reactions Criticality Noted Date Comments Benazepril Hcl Hives,Rash High 10/27/2018 Niacin Hives High 10/27/2018 Medications furosemide (LASIX) 40 mg tablet Take 40 mg by mouth 2 times daily. Active simvastatin (ZOCOR) 40 mg tablet Take 40 mg by mouth. Active levothyroxine 125 mcg tablet Take 125 mcg by mouth. Active meloxicam (MOBIC) 7.5 mg tablet TAKE 1 TABLET BY MOUTH EVERY DAY 3 9 Active enalapril (VASOTEC) 10 mg tablet TAKE 1 TABLET BY MOUTH EVERY DAY 3 9 Active aspirin (ECOTRIN EC) 81 mg Tablet, Delayed Release (E.C.) Take 81 mg by mouth. Active alendronate (FOSAMAX) 70 mg tablet Take 70 mg by mouth every 7 days. 11 9 Active calcium carbonate (CALCIUM 600 ORAL) Take 1 Tablet by mouth. Active cholecalciferol, Vitamin D3, 2,000 unit Tablet Take 2,000 Units by mouth 2 times daily. Active herbal drugs (FIBER DIET ORAL) Take by mouth. Active vit A,C and D-dyvhpf-vwaqnkki (OCUVITE) 300 mcg-200 mg-27 mg-2 mg Tablet Activ e mirtazapine (REMERON) 30 mg tablet TAKE 1 TABLET DAILY AT BEDTIME FOR DEPRESSION 0 Active multivitamins with minerals Tablet Take 1 Tablet by mouth. Active methylcellulose, with sugar, (CITRUCEL FIBER LAXATIVE ORAL) Activ e vit B complex no.12/niacin,B3, (VITAMIN B COMPLEX NO.12-NIACIN ORAL) Take by mouth. Activ e zinc gluconate 50 mg Tablet Take by mouth. Activ e potassium chloride (KLOR-CON) 10 mEq Extended Release tablet Take 10 mEq by mouth daily. 2 Active spironolactone (ALDACTONE) 25 mg tablet Take 25 mg by mouth daily. Active anastrozole (ARIMIDEX) 1 mg tabletIndications :Ductal carcinoma in situ (DCIS) of right breast TAKE 1 TABLET BY MOUTH EVERY DAY 90 Tablet 3 4 Active venlafaxine (EFFEXOR XR) 75 mg Extended Release 24 hour capsuleIndication s:Malignant neoplasm of right female breast, unspecified estrogen receptor status, unspecified site of breast (CMS/HCC),Ductal carcinoma in situ (DCIS) of right breast,Osteoporos is, unspecified osteoporosis type, unspecified pathological fracture presence TAKE 1 CAPSULE BY MOUTH EVERY DAY 90 Capsule 1 5 Active Active Problems Patient Care Coordination No te Formatting of this note migh t be different from the original. Primary Care: Edel Gatica [place]: [place] [id number] [facility] [address] [place] [address] Other: Dr. 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 Microcalcification of right breast on mammogram 12/17/2018 Morbid obesity with BMI of 50.0-59.9, adult Encounters Date Type Department Care Team Description 07/27/2024 External Device Data ST[facility] ABSTRACTION Provider, Abstract 07/06/2024 External Device Data [facility] ABSTRACTION Provider, Abstract 05/23/2024 Refill [facility] Oncology and Hematology [facility] [address] [place] [address] Rashi Mata MD Malignant neoplasm of right female breast, unspecified estrogen receptor status, unspecified site of breast (CMS/HCC); Ductal carcinoma in situ (DCIS) of right breast; Osteoporosis, unspecified osteoporosis type, unspecified pathological fracture presence 05/12/2024 External Device Data STL ABSTRACTION Provider, Abstract 05/12/2024 External Device Data ST[facility] ABSTRACTION Provider, Abstract 05/11/2024 External Device Data STL ABSTRACTION Provider, Abstract from Last 3 Months Family History Medical History Relation Name Comments Breast Cancer Neg Hx Cancer Neg Hx Ovarian Cancer Neg Hx Social History Tobacco Use Types Packs/Day Years Used Date Smoking Tobacco: Never Smokeless Tobacco: Never Tobacco Cessation:Counseling Given: Not Answered Alcohol Use Standard Drinks/Week Comments Never 0 (1 standard drink = 0.6 oz pur e alcohol) Comments No Sex and Gender Information Value Date Recorded Sex Assigned at Not on file Legal Sex Female 10:51 AM CDT Gender Identity Not on file Sexual Orientation Not on file Last Filed Vital Signs Vital Sign Reading Time Taken Comments Blood Pressure 138/63 01/02/2024 9:53 AM CDT Pulse 81 01/02/2024 9:53 AM CDT Temperature 36.5 C (97.7 F) 01/02/2024 9:49 AM CDT Respiratory Rate 20 01/02/2024 9:49 AM CDT Oxygen Saturation 97% 01/02/2024 9:49 AM CDT Inhaled Oxygen Concentration - - Weight 129.7 kg (286 lb) 01/02/2024 9:49 AM CDT Height 154.9 cm (5' 1 ) 11/25/2023 10:11 AM CDT Body Mass Index 54.04 11/25/2023 10:11 AM CDT Plan of Treatment Upcoming Encounters Date Type Department Care Team (Late st Contact Info) Description 08/06/2024 9:00 AM CDT Office Visit [facility] Oncology and Hematology - [place] [address] [facility] [address] [place] [address] Rashi Mata MD [address] [facility] [address] [place] [address] Health Maintenance Due Date Last Done Comments DTAP/TDAP/TD VACCINES (1 - Tdap) 05/25/1966 PNEUMOCOCCAL VACCINE 50+ YEA RS (1 of 1 - PCV) 05/25/1997 ZOSTER VACCINE (1 of 2) 05/25/1997 RSV VACCINE (60+ or ) (1 - 1-dose 75+ series) 05/25/2022 INFLUENZA VACCINE (#1) 2023 12/11/2020, 2007 OSTEOPOROSIS SCREENING 08/30/2026 2, 08/30/2021, 06/28/2019, Additional history exists COLORECTAL SCREENING Discontinued 12/06/2019, 12/06/2019, 08/25/2014 Colorectal Cancer Screening Discontinued FIT-DNA Q 3 years Discontinued FIT/FOBT Q 1 year Discontinued Flex Sig/CT Colonography Q 5 years Discontinued Medical Devices Implanted Type Area Second Crusher Device Identifier Shelf Expiration Date Model / Serial / Lot Hemostatic Surgicel 2x3in 1950 - [id number] Implanted:Qty : 1 on 02/12/2019 by Nisa Huff MD at [facility] Hemostatic Right: Breast [employer] [id number] 06/21/20221952 / [id number] Procedures Procedure Name Priority Date/Time Associated Diagnosis Comments XR DEXA BONE DENSITY AXIAL 1 OR MORE SITES Routine 06/28/2019 Osteoporosis, unspecified osteoporosis type, unspecified pathological fracture presence from Last 3 Months or Most Recently Relevant to Health Maintenance Results * XR DEXA BONE DENSITY AXIAL 1 OR MORE SITES (06/28/2019) Anatomical Region Laterality Modality Other Rashi Mata MD DIAGNOSTIC IMAGING ORDERABLES F inal Result from Last 3 Months or Most Recently Relevant to Health Maintenance Insurance AETNA PPO [facility] AETNA PPO MCR Care Teams Welding Manager Relationship Specialty Start Date End Date Edel Gatica MD [address] [place] [address] PCP - General Family Practice 01/26/19
--- OUTSIDE RECORDS SUMMARY | 2024-07-30 08:33 | XMS_ITS | Encounter Summary ---
Author Organization [facility] Address [address] [place] [address] Phone Care Team Providers Care Boat Carpenter Name Role Phone Provider, Not On File Primary Care Provider Unav Edel Sheridan MD Primary Care Provider Encounter Details Date Type Department Care Team (Late st Contact Info) Description 07/10/2022 Transcribe Orders [facility] Preop/Pacu II [address] [place] [address] Sean Hdz MD [address] [place] [address] Preop testing (Primary Dx); Cataract of right eye Social History Tobacco Use Types Packs/Day Years Used Date Smoking Tobacco: Never Smokeless Tobacco: Never Alcohol Use Standard Drinks/Week Comments No 0 (1 standard drink = 0.6 oz pur e alcohol) Comments Unknown Sex and Gender Information Value Date Recorded Sex Assigned at Not on file Legal Sex Female 2:24 PM CDT Gender Identity Not on file Sexual Orientation Not on file COVID-19 Exposure Response Date Recorded In the last 10 days, have yo u been in contact with someone who was confirmed or suspected to have Coronavirus/COVID-19? No / Unsure 07/12/2022 12:50 PM CDT documented as of this encounter Plan of Treatment Not on file documented as of this encounter Results * SARS-COV-2 BY MOLECULAR (07/12/2022 12:55 PM CDT) SARSCOV2 NOT DETECTED (Referenc e Range for this test is Not Detected) [facility] NOW 07/12/2022 1:29 PM CDT [facility] Comment:This test was perfor med by a MOLECULAR, NON-PCR method Other NASAL STRUCTURE / Unknown Non-Phlebotomy Collection / Unknown 07/12/2022 12:55 PM CDT 07/12/2022 1:10 PM CDT Narrative [facility] - 07/12/2022 1:29 PM CDT This test has been authorized by the FDA under an Emergency Use Authorization (EUA) only. Negative results should be treated as presumptive and, if inconsistent with clinical signs and symptoms or necessary for patient management, the patient should be tested with an alternative molecular assay. Negative results do not preclude SARS-CoV-2 infection or any other respiratory pathogen. Additional information for Clinicians can be found at: https://www.fda.gov/media/490020/download Additional information for Patients can be found at: https://www.fda.gov/media/223841/download Sean Hdz MD MICROBIOLOGY - GENERAL ORDERABLES Final Result [facility] [address] [place] [address] documented in this encounter Visit Diagnoses Diagnosis Preop testing- Primary Preoperative examination, unspecified Cataract of right eye Unspecified cataract documented in this encounter Care Teams Boat Carpenter Relationship Specialty Start Date End Date Provider, Not On File [place] PCP - General 10/05/15 07/11/22 [place] [address] [place] [address] [place] [address] PCP - General Family Medicine 07/12/22 documented as of this encounter
== END 2024-07-30 08:30 | disposition home or self-care (01) ==
LOC: ANHIMG 08:31
PROVIDERS: PCP Family Medicine; Visit Provider Internal Medicine Hematology & Oncology
DX: Z13.820 Encounter for screening for osteoporosis (principal); M81.0 Age-related osteoporosis without current pathological fracture
CPT/HCPCS: 77080

== ENCOUNTER 2024-08-06 08:16 | Outpatient (CLI) | payer MEDICARE, SELFPAY ==
--- OUTSIDE RECORDS SUMMARY | 2024-08-06 08:21 | XMS_ITS | Encounter Summary ---
Author Organization [facility] Address [address] [place] [address] Phone Care Team Providers Care Senior Consumer Insights Consultant Name Role Phone Provider, Not On File Primary Care Provider Unav Edel Sheridan MD Primary Care Provider Encounter Details Date Type Department Care Team (Late st Contact Info) Description 07/10/2022 Transcribe [facility] [address] [place] [address] Sean Hdz MD [address] [place] [address] Preop testing (Primary Dx); Cataract of right [...] Range for this test is Not Detected) [facility] ID NOW 07/12/2022 1:29 PM CDT [facility] Comment:This test was perfor med by a MOLECULAR, NON-PCR method Other NASAL STRUCTURE / Unknown Non-Phlebotomy Collection / Unknown 07/12/2022 12:55 PM CDT 07/12/2022 1:10 PM CDT Narrative [facility] - 07/12/2022 1:29 PM CDT This [...] information for Clinicians can be found at: https://www.fda.gov/media/835233/download Additional information for Patients can be found at: https://www.fda.gov/media/609512/download Sean Hdz MD MICROBIOLOGY - GENERAL ORDERABLES Final Result [facility] [address] [place] [address] documented in this encounter Visit Diagnoses Diagnosis Preop testing- Primary Preoperative examination, unspecified Cataract of right eye Unspecified cataract documented in this encounter Care Teams Senior Consumer Insights Consultant Relationship Specialty Start Date End Date Provider, Not On File [place] PCP - General 10/05/15 07/11/22 [place] [address] [place] [address] [place] [address] PCP - General Family Medicine 07/12/22 documented as of this encounter
--- OUTSIDE RECORDS SUMMARY | 2024-08-06 08:21 | XMS_ITS | Clinical Summary ---
Author Organization [facility] Address [address] [place] [address] Phone Care Team Providers Care Psychologist Experimental Name Role Phone Edel Gatica MD Primary Care Provider [phone] Allergies Active Allergy Reactions Criticality Noted Date [...] this topic Medical Devices Implanted Type Area Pig Machine Operator Device Identifier Shelf Expiration Date Model / Serial / Lot Technis 1-Piece Iol With Simplicity Delivery System Implanted:Qty: 1 on 07/15/2022 by Sean Hdz MD at [facility] Right: Eye [employer] 03/05/2024 [id number] / [id number] / [id number] Left Intraocular Lens Implanted:Qty: 1 on 09/16/2022 by Sean Hdz MD at [facility] Left: Eye [employer] 06/09/2025 [id number] / [id number] / [id number] Insurance MEDICARE C [employer] [place] [id number] Care Teams Psychologist Experimental Relationship Specialty Start Date End Date Edel Gatica MD [address] [place] [address] PCP - General Family Medicine 07/12/22
--- OUTSIDE RECORDS SUMMARY | 2024-08-06 08:21 | XMS_ITS | Encounter Summary ---
Author Organization [facility] [employer] [facility] Address [address] [place] [address] Care Team Providers Care Resident Care Supervisor Name Role Phone Edel Gatica MD Primary Care Provider Encounter Details Date Type Department Care Team (Late Contact Info) Description 08/05/2024 Orders Only [facility]3] Oncology and Hematology - [place] [address] [place] [address] Rashi Mata MD [address] [place] [address] Social History Tobacco Use Types Packs/Day Years Used Date Smoking Tobacco: Never Smokeless Tobacco: Never Alcohol Use Standard Drinks/Week Comments Never 0 [...] Description 08/06/2024 9:00 AM CDT Office Visit [facility]3] Oncology and Hematology - [place] [address] [place] [address] Rashi Mata MD [address] [place] [address] documented as of this encounter Procedures Procedure Name Priority Date/Time Associated Diagnosis Comments NM BONE DENSITY Routine 07/30/2024 9:30 AM CDT documented in this encounter Results * NM BONE DENSITY (07/30/2024 9:30 AM CDT) Anatomical Region Laterality Modality Nuclear Medicine us Rashi Mata MD NM ORDERABLES Final Result documented in this encounter Visit Diagnoses Not on filedocumented in this encounter Care Teams Resident Care Supervisor Relationship Specialty Start Date End Date Edel Gatica MD [address] [facility] [address] [place] [address] PCP - General Family Practice 01/26/19 documented as of this encounter
--- OUTSIDE RECORDS SUMMARY | 2024-08-06 08:21 | XMS_ITS | Clinical Summary ---
Author Organization [facility] Address [address] [place] [address] Care Team Providers Care Online Merchandising Coordinator Name Role Phone Edel Gatica MD Primary Care Provider [phone] Edel Gatica MD Unavailable Allergies Active Allergy Reactions Criticality Noted Date Comments Benazepril Rash Low 06/29/2020 Niacin Unknown 06/29/2020 Medications anastrozole 1 MG tablet Take 1 mg by mouth daily. 1 Active furosemide 40 MG tablet Take 1 tablet (40 mg total) by mouth daily. Active levothyroxine 125 MCG tablet Take 125 mcg by mouth daily. 1 Active meloxicam 7.5 MG tablet Take 7.5 mg by mouth daily. 1 Active mirtazapine 30 MG disintegrating tablet Take 30 mg by mouth nightly at bedtime. Active aspirin 81 MG chewable tablet Chew 81 mg by mouth daily. Active Multiple Vitamins-Minerals (EYE VITAMINS) Cap Take 1 tablet by mouth 2 (two) times daily. Active calcium carbonate 1500 (600 Ca) MG tablet Take 600 mg by mouth 2 (two) times daily with meals. Active multi vitamin/minerals tablet Take 1 tablet by mouth daily. Active venlafaxine XR 75 MG 24 hr capsule Take 75 mg by mouth daily. Active enalapril 10 MG tablet Take 10 mg by mouth daily. Active alendronate 70 MG tablet Take 70 mg by mouth every 7 days. Active potassium chloride CR 10 MEQ Tab CR tablet Take 1 tablet by mouth daily. Active simvastatin 40 MG tablet Take 40 mg by mouth nightly at bedtime. Active cetirizine 10 MG tablet Take 10 mg by mouth daily. Active vitamin D3, cholecalciferol, 1000 UNIT Tab tablet Take 2,000 Units by mouth 2 (two) times daily. Active spironolactone (ALDACTONE) 25 MG tablet Take 1 tablet (25 mg total) by mouth daily. Active Encounters Date Type Department Care Team Description 08/02/2024 7:35 AM CDT - 08/02/2024 11:59 PM CDT Hospital Encounter [facility] [address] [place] [address] [place] [address] Edel Gatica MD Quarton, Brian L, MD Discharge Disposition: Home or Self Care (Routine Discharge) 08/02/2024 7:30 AM CDT - 08/02/2024 7:34 AM CDT Hospital Encounter [facility] [address] [place] [address] [place] [address] Edel Gatica MD Arrived Discharge Disposition: Home or Self Care (Routine Discharge) 08/02/2024 Travel 07/01/2024 Transcribe Orders [facility] Pre Access Team [address] [place] [address] Edel Gatica MD from Last 3 Months Immunizations Immunization Administration Dates Next Due Influenza Adult (Generic) 12/11/2020 Social History Tobacco Use Types Packs/Day Years Used Date Smoking Tobacco: Never Smokeless Tobacco: Never Alcohol Use Standard Drinks/Week Comments Never 0 (1 standard drink = 0.6 oz pur e alcohol) AUDIT-C Answer Date Recorded Q1: How often do you have a drink containing alc ohol? Never 06/29/2020 Average Number of Drinks Not on file 021 Frequency of Binge Drinking Not on file 10/2020 Comments No Sex and Gender Information Value Date Recorded Sex Assigned at Female 08/05/2024 4:04 PM CDT Legal Sex Female 1:04 PM CDT Gender Identity Not on file Sexual Orientation Not on file Last Filed Vital Signs Vital Sign Reading Time Taken Comments Blood Pressure 163/64 06/07/2023 10:25 PM CDT Pulse 72 06/07/2023 8:18 PM CDT Temperature 35.8 C (96.5 F) 06/07/2023 8:18 PM CDT Respiratory Rate 18 06/07/2023 8:18 PM CDT Oxygen Saturation 99% 06/07/2023 10:25 PM CDT Inhaled Oxygen Concentration - - Weight 129.7 kg (286 lb) 08/02/2024 7:00 AM CDT Height 154.9 cm (5' 1 ) 08/02/2024 7:00 AM CDT Body Mass Index 54.04 08/02/2024 7:00 AM CDT Plan of Treatment Upcoming Encounters Date Type Department Care Team (Late st Contact Info) Description 08/09/2024 3:00 PM CDT Appointment [facility] [address] [place] [address] Edel Gatica MD [address] [place] [address] Arabella Pavon, OT [address] [place] [address] Health Maintenance Due Date Last Done Comments Hepatitis C 05/25/1963 Annual Medicare Wellness Visit 05/25/2012 Pneumococcal Vaccine: 50+ Years (2 of 2 - PPSV23) 12/24/2016 12/25/2015 COVID-19 Vaccine ( season) 2023 05/12/2023, 12/03/2021, 02/22/2021, Additional history exists DTaP, Tdap and Td Vaccines (2 - Td or Tdap) 03/12/2028 03/12/2018 Dexa Scan (General) Completed 08/30/2021, 06/28/2019, 06/28/2019 Zoster Vaccines Completed 01/30/2022, 08/27/2021 RSV Immunization or 60+ Years Completed 05/12/2023 Meningococcal B Vaccine Aged Out No l onger eligible based on patient's age to complete this topic Meningococcal Vaccine Aged Out No rozina hay eligible based on patient's age to complete this topic RSV Immunizations Under 20 Months Aged Out No longer eligible based on patient's age to complete this topic Procedures Procedure Name Priority Date/Time Associated Diagnosis Comments NM PHARM NUC STRESS TEST 1DAY W TRACING Routine 08/02/2024 10:30 AM CDT Shortness of breath XR CHEST PA+LAT Routine 08/02/2024 8:32 AM CDT Shortness of breath STRESS TEST ONLY, EXERCISE Routine 08/02/2024 7:37 AM CDT Shortness of breath BONE DENSITY/DEXA Routine 08/30/2021 3:2 2 PM CDT Postmenopausal from Last 3 Months or Most Recently Relevant to Health Maintenance Results * NM PHARM NUC STRESS TEST 1 DAY W TRACING (08/02/2024 10:30 AM CDT) Anatomical Region Laterality Modality Cardiac Nuclear Medicine 08/02/2024 12:4 4 PM CDT Impressions 08/02/2024 12:45 PM CDT IMPRESSION: 1. No evidence of ischemia or infarction. 2. Normal wall motion study. 3. Stress LVEF is within normal limits at 85%. Ordered By: EDEL GATICA Interpreted By: Louis Jarvis MD, 08/02/2024 12:44 PM Narrative 08/02/2024 12:45 PM CDT [address] [place] [address] Examination: Rest/stress myocardial perfusion scan with gated SPECT. Exam time: 0745 hours. Clinical history: Dyspnea. Comparison: None. Radiopharmaceutical: 10.8 mCi 99m Tc Cardiolite at rest; 31.5 mCi 99m Tc Cardiolite at peak stress. Findings: Patient monitoring during stress and EKG interpretation were provided by Dr. Baron. Resting SPECT myocardial perfusion images in three standard planes were acquired. The patient was subsequently stressed pharmacologically via IV administration of unit dose of Lexiscan. Maximum heart rate was 81 beats per minute. No EKG ischemic changes are reported. Post stress SPECT myocardial perfusion images in three standard planes were acquired. Gated SPECT was also performed, post stress. No reversible or irreversible perfusion defects are identified to suggest ischemia or infarction. Left ventricular chamber size appears normal. The gated SPECT study shows no diffuse or focal wall motion abnormality. The calculated left ventricular ejection fraction at stress is within normal limits at 85%. TID: 0.98. Procedure Note Louis Jarvis MD - 08/02/2024 [facility] [address] [place] [address] Examination: Rest/stress myocardial perfusion scan with gated SPECT. Exam time: 0745 hours. Clinical history: Dyspnea. Comparison: None. Radiopharmaceutical: 10.8 mCi 99m Tc Cardiolite at rest; 31.5 mCi 99m TcCardiolite at peak stress. Findings: Patient monitoring during stress and EKG interpretation wereprovided by Dr. Baron. Resting SPECT myocardial perfusion images inthree standard planes were acquired. The patient was subsequently stressedpharmacologically via IV administration of unit dose of Lexiscan. Maximumheart rate was 81 beats per minute. No EKG ischemic changes are reported.Post stress SPECT myocardial perfusion images in three standard planeswere acquired. Gated SPECT was also performed, post stress. No reversible or irreversible perfusion defects are identified to suggestischemia or infarction. Left ventricular chamber size appears normal. The gated SPECT study shows no diffuse or focal wall motion abnormality.The calculated left ventricular ejection fraction at stress is withinnormal limits at 85%. TID: 0.98. IMPRESSION: 1. No evidence of ischemia or infarction. 2. Normal wall motion study. 3. Stress LVEF is within normal limits at 85%. Ordered By: EDEL GATICA Interpreted By: Louis Jarvis MD, 08/02/2024 12:44 PM us Edel Gatica MD NUC MED Final Result * XR CHEST PA+LAT (08/02/2024 8:32 AM CDT) Anatomical Region Laterality Modality Chest Radiographic Arcelia ging 08/02/2024 8:4 1 AM CDT Impressions 08/02/2024 8:43 AM CDT IMPRESSION: No acute disease. Ordered By: EDEL GATICA Interpreted By: Louis Jarvis MD, 08/02/2024 8:41 AM Narrative 08/02/2024 8:43 AM CDT [address] [place] [address] Examination: Two-view chest Exam time: 0811 hours. Clinical history: Dyspnea for approximately six months, worsening over time. History of breast cancer. Comparison: None. Technique: PA and lateral views Findings: The heart is within normal limits for size. Pulmonary vascularity is within normal limits. The lungs and pleural spaces appear free of any active process. The bony thorax is unremarkable for age and stature. Procedure Note Louis Jarvis MD - 08/02/[address] [place] [address] Examination: Two-view chest Exam time: 0811 hours. Clinical history: Dyspnea for approximately six months, worsening overtime. History of breast cancer. Comparison: None. Technique: PA and lateral views Findings: The heart is within normal limits for size. Pulmonaryvascularity is within normal limits. The lungs and pleural spaces appearfree of any active process. The bony thorax is unremarkable for age andstature. IMPRESSION: No acute disease. Ordered By: EDEL GATICA Interpreted By: Louis Jarvis MD, 08/02/2024 8:41 AM Edel Gatica MD GENERAL IMAGING Final Result * BONE DENSITY/DEXA (08/30/2021 3:22 PM CDT) Anatomical Region Laterality Modality Bone Bone Density 08/30/2021 4:1 6 PM CDT Impressions 08/30/2021 4:18 PM CDT Impression: BMD measured at AP lumbar spine, both total hips and both femoral necks at WHO category level of normal. Ordered By: EDEL GATICA Interpreted By: Chacorta Tobias MD, 08/30/2021 4:16 PM Narrative 08/30/2021 4:18 PM CDT Examination: DEXA Bone densitometry EXAM DATE: 08/30/2021 3:22 PM Clinical history: Postmenopausal. Calcium supplementation. Vitamin D use. Dairy product consumption. Medication use for treatment of osteoporosis. Technique: DEXA bone minimal density evaluation was performed in the AP projection over the lumbar spine and over both hips in the AP projection utilizing standard imaging techniques. Assessment: The BMD measured at the AP spine L1-L4 is 1.014 g/cm? with a T-score of -0.3 and a Z-Score of 2.1. Bone density is up to 10% below young normal. This patient is considered normal according to the World Health Organization (WHO) criteria. Fracture risk is low. The BMD measured at the femur total left is 1.012 g/cm? with a T-score of 0.6 and a Z-Score of 2.3. Bone density is up to 10% below young normal. This patient is considered normal according to the World Health Organization (WHO) criteria. Fracture risk is low. The BMD measured at the left femoral neck is 0.866 g/sq cm resulting in a T score of 0.2 and a Z score of 2.2, values at the WHO category level of normal. The BMD measured at the femur total right is 0.988 g/cm? with a T-score of 0.4 and aZ-Score of 2.1. Bone density is up to 10% below young normal. This patient is considered normal according to the World Health Organization (WHO) criteria. Fracture risk is low. The BMD measured at the right femoral neck is 0.886 g/sq cm resulting in a T score of 0.3 and a Z score of 2.4, values at the WHO category level of normal. FRAX results: 10 year probability of major osteoporotic fracture 5.8% and of hip fracture 0.4%. Recommendations: All patients should ensure an adequate intake of dietary calcium and vitamin D. The NOF recommend adults under the age of 50 need 1000 mg of calcium and 400-800 IU of vitamin D daily. Effective therapy for the prevention and treatment of osteoporosis include biphosphonates. Follow-up: People with diagnosed cases of osteoporosis or at high risk for fracture should have regular bone mineral density test. For patients eligible for Medicare, routine testing is allowed once every 2 years. Testing frequency can be increased to one year for patients who have rapidly progressing disease, those who are receiving or discontinuing medical therapy to restore bone mass, or have additional risk factors. Based on these results, a followup exam is recommended in no earlier than 2 years. Procedure Note Chacorta Tobias MD - 08/30/2021 Examination: DEXA Bone densitometry EXAM DATE: 08/30/2021 3:22 PM Clinical history: Postmenopausal. Calcium supplementation. Vitamin D use.Dairy product consumption. Medication use for treatment of osteoporosis. Technique: DEXA bone minimal density evaluation was performed in the APprojection over the lumbar spine and over both hips in the AP projectionutilizing standard imaging techniques. Assessment: The BMD measured at the AP spine L1-L4 is 1.014 g/cm? with a T-score of-0.3 and a Z-Score of 2.1. Bone density is up to 10% below youngnormal. This patient is considered normal according to the World HealthOrganization (WHO) criteria. Fracture risk is low. The BMD measured at the femur total left is 1.012 g/cm? with a T-score of0.6 and a Z-Score of 2.3. Bone density is up to 10% below young normal.This patient is considered normal according to the World HealthOrganization (WHO) criteria. Fracture risk is low. The BMD measured at the left femoral neck is 0.866 g/sq cm resulting in aT score of 0.2 and a Z score of 2.2, values at the WHO category level ofnormal. The BMD measured at the femur total right is 0.988 g/cm? with a T-score of0.4 and aZ-Score of 2.1. Bone density is up to 10% below young normal.This patient is considered normal according to the World HealthOrganization (WHO) criteria. Fracture risk is low. The BMD measured at the right femoral neck is 0.886 g/sq cm resulting in aT score of 0.3 and a Z score of 2.4, values at the WHO category level ofnormal. FRAX results: 10 year probability of major osteoporotic fracture 5.8% andof hip fracture 0.4%. Recommendations: All patients should ensure an adequate intake of dietary calcium andvitamin D. The NOF recommend adults under the age of 50 need 1000 mg ofcalcium and 400-800 IU of vitamin D daily. Effective therapy for theprevention and treatment of osteoporosis include biphosphonates. Follow-up: People with diagnosed cases of osteoporosis or at high risk for fractureshould have regular bone mineral density test. For patients eligible forMedicare, routine testing is allowed once every 2 years. Testing frequencycan be increased to one year for patients who have rapidly progressingdisease, those who are receiving or discontinuing medical therapy torestore bone mass, or have additional risk factors. Based on these results, a followup exam is recommended in no earlier than2 years. Impression: BMD measured at AP lumbar spine, both total hips and both femoral necks atWHO category level of normal. Ordered By: EDEL GATICA Interpreted By: Chacorta Tobias MD, 08/30/2021 4:16 PM us Edel Gatica MD DEXA Final Result from Last 3 Months or Most Recently Relevant to Health Maintenance Insurance A[employer] Care Teams Online Merchandising Coordinator Relationship Specialty Start Date End Date Edel Gatica MD [address] [place] [address] PCP - General FAMILY PRACTICE 08/02/24 Edel Gatica MD [address] [place] [id number] [facility] 08/02/24
--- OUTSIDE RECORDS SUMMARY | 2024-08-06 08:21 | XMS_ITS | Clinical Summary ---
Author Organization [facility] Address [address] [place] [address] Care Team Providers Care Formula Clerk Name Role Phone Edel Gatica MD Primary [...] Take by mouth. Active vit A,C and Y-nntcco-rrjqwbtl (OCUVITE) 300 mcg-200 mg-27 mg-2 mg Tablet [...] Gatica MD [place]: [place] [id number] [address] Other: Dr. 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 Microcalcification of right breast on mammogram 12/17/2018 Morbid obesity with BMI of 50.0-59.9, adult Encounters Date Type Department Care Team Description 08/05/2024 Orders Only [facility] Oncology and Hematology [facility] [address] [place] [address] Rashi Mata MD 07/27/2024 External Device Data [facility] ABSTRACTION Provider, Abstract 07/06/2024 External Device Data [facility] ABSTRACTION Provider, Abstract 05/23/2024 Refill [facility] Oncology and Hematology [place] [address] [place] [address] Rashi Mata MD Malignant neoplasm [...] Description 08/06/2024 9:00 AM CDT Office Visit [facility] Oncology and Hematology - [place] [address] [place] [address] Rashi Mata MD [address] [facility] [address] [place] [address] Health Maintenance Due Date Last [...] years Discontinued Medical Devices Implanted Type Area Adult Basic Studies Teacher Device Identifier Shelf Expiration Date Model / Serial / Lot Hemostatic Surgicel 2x3in 1950 - [id number] Implanted:Qty : 1 on 02/12/2019 by Nisa Huff MD at [facility] Hemostatic Right: Breast [employer] [id number] 06/21/20223 / / [id number] Procedures Procedure Name Priority Date/Time Associated Diagnosis Comments NM BONE DENSITY Routine 07/30/2024 9:30 AM CDT XR DEXA BONE DENSITY AXIAL 1 OR MORE SITES Routine 06/28/2019 Osteoporosis, unspecified osteoporosis type, unspecified pathological fracture presence from Last 3 Months or Most Recently Relevant to Health Maintenance Results * NM BONE DENSITY (07/30/2024 9:30 AM CDT) Anatomical Region Laterality Modality Nuclear Medicine us Rashi Mata MD NM ORDERABLES Final Result * XR DEXA BONE DENSITY AXIAL 1 OR MORE SITES (06/28/2019) Anatomical Region Laterality Modality Other us Rashi Mata MD DIAGNOSTIC IMAGING ORDERABLES F inal Result from Last 3 Months or Most Recently Relevant to Health Maintenance Insurance [employer] PPO MCR [employer]ET[employer] PPO MCR Care Teams Formula Clerk Relationship Specialty Start Date End Date Edel Gatica MD [address] [facility] [place] [address] PCP - General Family Practice 01/26/19
--- OUTSIDE RECORDS SUMMARY | 2024-08-06 08:21 | XMS_ITS | Encounter Summary ---
Author Organization [facility] Address [address] [place] [address] Care Team Providers Care Spare Hand Name Role Phone Edel Gatica MD Primary Care Provider [phone] Edel Gatica MD Primary Care Provider [phone] Edel Gatica MD Unavailable Encounter Details Date Type Department Care Team (Late st Contact Info) Description 08/29/2018 Abstract [facility] CONVERSION [address] [place] [address] , Generic Conversion, Social History Tobacco Use Types Packs/Day Years Used Date Smoking Tobacco: Never Assessed Comments Unknown Sex and Gender Information Value Date Recorded Sex Assigned at Female 08/05/2024 4:04 PM CDT Legal Sex Female 1:04 PM CDT Gender Identity Not on file Sexual Orientation Not on file documented as of this encounter Plan of Treatment Upcoming Encounters Date Type Department Care Team (Late st Contact Info) Description 08/09/2024 3:00 PM CDT Appointment [facility] [address] [place] [address] Edel Gatica MD [address] [place] [id number] Arabella Pavon, OT [address] [place] [address] documented as of this encounter Visit Diagnoses Not on filedocumented in this encounter Care Teams Spare Hand Relationship Specialty Start Date End Date Edel Gatica MD [address] [place] [id number] PCP - [facility] 11/25/17 08/01/24 Edel Gatica MD [address] [place] [address] PCP - [facility] 08/02/24 Edel Gatica MD [address] [place] [address] [facility] 08/02/24 documented as of this encounter
--- OUTSIDE RECORDS SUMMARY | 2024-08-06 08:21 | XMS_ITS | Encounter Summary ---
Author Organization [facility] Address [address] [place] [address] Care Team Providers Care Recreation Assistant Name Role Phone Edel Gatica MD Primary Care Provider Encounter Details Date Type Department Care Team (Late Contact Info) Description 02/04/2019 Chart Note [facility] Radiation [facility] [address] [place] [address] Jose Muñ[place] [address] [place] [address] Social History Tobacco Use Types [...] Description 08/06/2024 9:00 AM CDT Office Visit [facility] Oncology and Hematology - [place] [address] [facility] [address] [place] [address] Rashi Mata MD [address] [facility] [address] [place] [address] documented as of this encounter Visit Diagnoses Not on filedocumented in this encounter Care Teams Recreation Assistant Relationship Specialty Start Date End Date Edel Gatica MD [address] [place] [address] PCP - General Family Practice 01/26/19 documented as of this encounter
[2024-08-06 08:36] LABS: Basophils Percent Auto 0.2 % (0.2-1.2); Eosinophils Absolute Auto 0.2 K/mm3 (0-0.3); Eosinophils Percent Auto 4.6 % (0-4.4); Hematocrit 36.1 % (37.0-47.0); Hemoglobin 11.9 g/dL (12.0-15.0); Immature Granulocyte Absolute 0.01 K/mm3 (0.00-0.031); Immature Granulocyte Percent A 0.2 % (0-0.5); Lymphocytes Absolute Auto 1.03 K/mm3 (0.9-3.2); Lymphocytes Percent Auto 21.4 % (18.3-44.2); Mean Corpuscular Hemoglobin 32.5 pg (26-34); Mean Corpuscular Volume 98.6 fl (80-100); Monocytes Absolute Auto 0.4 K/mm3 (0.1-0.6); Monocytes Percent Auto 8.7 % (2.6-8.5); Neutrophils Absolute Auto 3.1 K/mm3 (1.3-6.7); Neutrophils Percent Auto 64.9 % (45.5-73.1); Platelet Count Result 145 k/mm3 (150-375); Red Blood Count 3.66 M/mm3 (4.2-5.4); Red Cell Distribution Width 13.2 % (11.5-14.5); White Blood Count 4.8 K/mm3 (4.5-10.0)
[2024-08-06 08:39] LABS: Blood Urea Nitrogen 30 mg/dL (8-26); Carbon Dioxide 27 mmol/L (22-30); Chloride 100 mmol/L (98-109); Estimated Glomerular Filt Rate 54; Glucose 170 mg/dL (70-105); Sodium 138 mmol/L (138-146)
[2024-08-06 10:35] LABS: Alanine Aminotransferase 23 U/L (6-35); Albumin Level 4.3 g/dL (3.5-5.1); Alkaline Phosphatase 79 U/L (38-126); Anion Gap 8 mmol/L (4-12); Aspartate Amino Transferase 52 U/L (14-36); Bilirubin,Total 0.4 mg/dL (0.2-1.3); Blood Urea Nitrogen 34 mg/dL (7-17); Calcium 9.2 mg/dL (8.4-10.2); Carbon Dioxide 28 mmol/L (22-30); Chloride 102 mmol/L (98-107); Estimated Glomerular Filt Rate > 60; Glucose 162 mg/dL (65-110); Sodium 138 mmol/L (137-145)
== END 2024-08-06 08:17 | disposition home or self-care (01) ==
LOC: ANHLAB 08:17
PROVIDERS: PCP Family Medicine; Visit Provider Internal Medicine Hematology & Oncology
DX: D05.11 Intraductal carcinoma in situ of right breast (principal)
CPT/HCPCS: 36415; 80047; 80053; 85025

== ENCOUNTER 2025-02-10 09:09 | Outpatient (CLI) | payer MEDICARE, SELFPAY ==
[2025-02-10 09:23] LABS: Hematocrit 37.8 % (37.0-47.0); Hemoglobin 12.5 g/dL (12.0-15.0); Immature Granulocyte Percent A 0.2 % (0-0.5); Lymphocytes Absolute Auto 1.34 K/mm3 (0.9-3.2); Mean Corpuscular HGB Conc 33.1 g/dl (32-36); Mean Corpuscular Hemoglobin 32.7 pg (26-34); Mean Corpuscular Volume 99.0 fl (80-100); Nucleated Red Blood Cells Absolute Auto 0.000 K/mm3 (0.0-0.012); Nucleated Red Blood Cells Perc 0.0 % (0.0-0.2); Platelet Count Result 154 k/mm3 (150-375); Red Blood Count 3.82 M/mm3 (4.2-5.4); White Blood Count 5.6 K/mm3 (4.5-10.0)
[2025-02-10 09:46] LABS: Alanine Aminotransferase 30 U/L (6-35); Albumin Level 4.6 g/dL (3.5-5.1); Alkaline Phosphatase 86 U/L (38-126); Anion Gap 7 mmol/L (4-12); Aspartate Amino Transferase 34 U/L (14-36); Bilirubin,Total 0.5 mg/dL (0.2-1.3); Blood Urea Nitrogen 32 mg/dL (7-17); Calcium 9.9 mg/dL (8.4-10.2); Carbon Dioxide 29 mmol/L (22-30); Chloride 104 mmol/L (98-107); Estimated Glomerular Filt Rate > 60; Glucose 136 mg/dL (65-110); Potassium 4.8 mmol/L (3.4-5.0); Sodium 140 mmol/L (137-145); Total Protein 7.9 g/dL (6.3-8.2)
== END 2025-02-10 09:10 | disposition home or self-care (01) ==
PROVIDERS: PCP Family Medicine; Visit Provider Internal Medicine Hematology & Oncology
DX: C50.911 Malignant neoplasm of unspecified site of right female breast (principal)
CPT/HCPCS: 36415; 80053; 85025